=== PATIENT | female | born 1990 | race Caucasian/White ===

== ENCOUNTER 2017-02-10 11:11 | Inpatient (IN) ==
[2017-02-10] MEDS ORDERED: ZOFRAN IV PRN (13:54)
[2017-02-10 14:45] LABS: AGAP 15; ALBUMIN 4.1 g/dL (3.5-5.0); ALKALINE PHOSPHATASE 108 U/L (32-104); BUN 12 mg/dL (8-22); CALCIUM 8.3 mg/dL (8.8-10.2); CHLORIDE 105 mmol/L (98-107); COSMO 278; GOT 21 U/L (10-30); GPT 20 U/L (10-36); POTASSIUM 3.6 mmol/L (3.5-5.1); SODIUM 139 mmol/L (136-145); TCO2 19 mmol/L (25-35); TOTAL PROTEIN 7.5 g/dL (6.3-8.3)
[2017-02-10 14:48] LABS: BASO% 0.1 % (0.0-0.8); HEMATOCRIT 38.5 % (37.0-47.0); IMM GRAN# 0.04 X1000 (0.0-0.04); IMM GRAN% 0.2 % (0.0-0.5); LYMPH# 1.26 X1000 (1.2-3.4); LYMPH% 5.9 % (20.5-51.1); MANUAL DIFF NEEDED? YES; MCHC 33.8 g/dL (33-37); MCV 100.8 FL (81-99); MONO# 1.24 X1000 (0.11-0.59); MONO% 5.8 % (1.7-9.3); MPV 11.1 FL (7.4-10.4); PLT 187 X1000 (130-400); RBC 3.82 XMIL (4.2-5.4)
[2017-02-10 14:52] LABS: BANDS 6 % (0-1); LYMPHS 7 % (21-51); MONO 6 % (1-9)
[2017-02-10] MEDS: ALBUTEROL NEB INH SCH ×2 (15:05→20:37)
--- NOTE | 2017-02-10 15:15 | Diag Imaging Result Doc PS360 ---
EXAM: CHEST-PORTABLE INDICATION: UPPER RESP INFECTION COMPARISON: 06/15/2016 FINDINGS: The lungs are grossly clear. There is no discrete pleural fluid collection. The cardiomediastinal silhouette and central vasculature are grossly unremarkable. There are metallic rods along the length of the thoracic and lumbar spine. IMPRESSION: No evidence of acute pathology. Electronically signed by Kenneth Olsen 02/10/2017 3:12 PM
[2017-02-10] MEDS: D5 1/2 NS 1,000 ML IV SCH (15:52)
[2017-02-10] MEDS: LEVAQUIN 500 MG/D5W 500 MG/100 ML IVPB IV SCH (17:46)
[2017-02-10] MEDS: TRILEPTAL PO SCH (19:02)
[2017-02-10] MEDS: ROCEPHIN 1 GM/NS 1 GM/50 ML IVPB IV SCH (19:02)
[2017-02-10] MEDS: KLONOPIN PO SCH (21:26)
[2017-02-11] MEDS: ALBUTEROL NEB INH SCH ×7 (00:57→23:20)
[2017-02-11] MEDS: D5 1/2 NS 1,000 ML IV SCH ×2 (03:23→18:14)
[2017-02-11] MEDS: ROCEPHIN 1 GM/NS 1 GM/50 ML IVPB IV SCH ×2 (06:32→17:57)
[2017-02-11] MEDS: SYNTHROID PO SCH (06:39)
[2017-02-11] MEDS: TRILEPTAL PO SCH ×2 (06:40→18:41)
--- NOTE | 2017-02-11 06:59 | HISTORY AND PHYSICAL ---
CHIEF COMPLAINT: Fever. HISTORY OF PRESENT ILLNESS: The patient is a 26-year-old female with a history of cerebral palsy. She presented today with fever, cough, congestion. Mom notes that she was more somnolent. Mom also notes that she was not tolerating her as well. She has been having fever at home. PAST MEDICAL HISTORY: Cerebral palsy. He is nonverbal. History of seizure disorder. Chronic malnutrition. She is on TPN. SURGICAL HISTORY: She has had spinal surgery with a karin placed and PEG tube placed. SOCIAL HISTORY: Patient does not smoke or drink. There is no illicit drug use. She lives at home with her mother. Primary care is [facility] in [place]. ALLERGIES: Penicillin and latex. HOME MEDICATIONS: Synthroid 50, Trileptal, Klonopin. REVIEW OF SYSTEMS: Unobtainable from Ms. Plata. However, her mom notes that she has had fever for the past couple of days, increased cough, increased congestion. Decreased tolerance of her PEG tube feeds. She has been more somnolent. Denies any rashes. Denies any other GI or issues. PHYSICAL EXAMINATION: VITAL SIGNS: Reviewed. Kathi is awake and alert. NECK: Supple. CV: Regular rate. CHEST: Good air movement, Relatively clear. No wheezing. ABDOMEN: Soft, cachectic. EXTREMITIES: No edema. Positive flexion contractures in upper and lower extremities. SKIN: No rashes. NEURO: No focal changes. LABS: WBCs 21, hemoglobin 13 and hematocrit 38. CMP normal. ASSESSMENT: 1. Pneumonia. 2. Fever. 3. Leukocytosis. 4. Sepsis secondary to pneumonia 5. Cerebral palsy. 6. History of seizure disorder. 7. Chronic malnutrition on TPN. PLAN: We will admit patient to the hospital. IV fluids with gentle hydration. Continue TPN feeds. Place her on IV antibiotics. Tylenol as needed and continue to follow. We will continue her home medications for seizures. Further orders as . cc: Nabeel Azul MD
--- NOTE | 2017-02-11 07:19 | Diag Imaging Result Doc PS360 ---
EXAM: CHEST-PORTABLE HISTORY: R/O aspiration COMPARISON: 02/10/2017. FINDINGS: The lungs are well expanded. The heart is not enlarged. The vessels are not distended. No infiltrates. No pleural effusions identified. There are rods in the thoracic spine. IMPRESSION: Negative chest. Electronically signed by David Gifford 02/11/2017 7:17 AM
[2017-02-11] MEDS ORDERED: SYNTHROID PO SCH (07:30)
--- NOTE | 2017-02-11 08:36 | PROGRESS NOTE ---
DATE: 02/11/2017 SUBJECTIVE: Mom notes that she looks like she is feeling better. She denies any fevers or chills. PHYSICAL EXAMINATION: Temperature 97, pulse 122, respiratory 20, BP 122/95, saturation 96% on room air. General: The patient is awake, alert. She is currently in no respiratory distress. CV: Tachycardia. Chest: Positive rhonchi which has changed from yesterday's exam. Abdomen soft, cachectic. Extremities: Positive contraction flexures. Neurologic: No changes. Skin: No rashes. LABORATORY: Pending. ASSESSMENT: 1. Sepsis. 2. Leukocytosis. 3. Fever, resolved. 4. Pneumonia. 5. Chronic malnutrition. 6. Cerebral palsy. PLAN: We will continue antibiotics, recheck her labs, further orders as needed. cc: Nabeel Azul MD
[2017-02-11] MEDS ORDERED: TRILEPTAL PO SCH ×3 (09:00→21:00)
[2017-02-11] MEDS: TOPROL XL PO SCH (09:54)
[2017-02-11] MEDS: LEVAQUIN 500 MG/D5W 500 MG/100 ML IVPB IV SCH (16:37)
[2017-02-11] MEDS ORDERED: KLONOPIN PO SCH (21:00)
[2017-02-11] MEDS: KLONOPIN PO SCH (21:22)
[2017-02-12] MEDS: ALBUTEROL NEB INH SCH ×6 (04:05→23:08)
[2017-02-12 06:00] LABS: HEMATOCRIT 37.9 % (37.0-47.0); HEMOGLOBIN 12.5 g/dL (12.0-16.0); MCH 33.6 PG (27-31); MCV 101.9 FL (81-99); MPV 11.2 FL (7.4-10.4); RBC 3.72 XMIL (4.2-5.4)
[2017-02-12] MEDS: TRILEPTAL PO SCH ×2 (06:24→18:00)
[2017-02-12] MEDS: ROCEPHIN 1 GM/NS 1 GM/50 ML IVPB IV SCH ×2 (06:25→17:55)
[2017-02-12] MEDS: SYNTHROID PO SCH (06:25)
[2017-02-12 06:33] LABS: AGAP 13; ALBUMIN 3.7 g/dL (3.5-5.0); ALKALINE PHOSPHATASE 92 U/L (32-104); BUN 9 mg/dL (8-22); CALCIUM 8.6 mg/dL (8.8-10.2); CHLORIDE 104 mmol/L (98-107); COSMO 274; GOT 21 U/L (10-30); GPT 18 U/L (10-36); POTASSIUM 4.4 mmol/L (3.5-5.1); SODIUM 138 mmol/L (136-145); TCO2 20 mmol/L (25-35); TOTAL PROTEIN 7.3 g/dL (6.3-8.3)
[2017-02-12] MEDS: TOPROL XL PO SCH (09:21)
--- NOTE | 2017-02-12 09:46 | PROGRESS NOTE ---
DATE: 02/12/2017 SUBJECTIVE: The patient is doing much better. She did not tolerate her tube feeds all night last night. However, her mom notes that her breathing is easier and notes that her color looks back to normal and her activity is starting to improve. OBJECTIVE: Vital signs: Temperature 97, pulse 104, respiratory rate 16, blood pressure 112/77, and saturation 99% on room air. General: The patient is awake and alert. She is currently in no respiratory distress. She is starting to feel better. Neck: Supple. CV: Mild tachycardia. No murmurs. Chest: Positive upper airway noise but no crackles and no wheezing. Abdomen: Soft. Extremities: Moves all of her extremities. She is noted to have multiple flexion contractures but otherwise no changes. LABS: WBC is 5. CMP is normal. ASSESSMENT: 1. Sepsis, resolved. Secondary to pneumonia. 2. Leukocytosis, resolved. WBC count is 5.9. 3. Pneumonia, improved. 4. Cerebral palsy. 5. Chronic malnutrition, stable. PLAN: We will ask [facility] to assist in discharge planning. She does have a small sacral decubitus and certainly may benefit from an additional type of air mattress at home. Hopefully she can discharge home in the a.m.. cc: Nabeel Azul MD
[2017-02-12] MEDS: LEVAQUIN 500 MG/D5W 500 MG/100 ML IVPB IV SCH (16:18)
[2017-02-12] MEDS: KLONOPIN PO SCH (21:08)
[2017-02-13] MEDS: ALBUTEROL NEB INH SCH ×3 (03:01→11:05)
[2017-02-13] MEDS: ROCEPHIN 1 GM/NS 1 GM/50 ML IVPB IV SCH (05:56)
[2017-02-13] MEDS: TRILEPTAL PO SCH (06:00)
[2017-02-13] MEDS: SYNTHROID PO SCH (06:00)
[2017-02-13 07:58] VITALS: BP 119/73
[2017-02-13] MEDS: TOPROL XL PO SCH (09:40)
[2017-02-13] MEDS ORDERED: LOPRESSOR PO SCH (09:45)
--- NOTE | 2017-02-13 22:06 | DISCHARGE SUMMARY ---
ADMISSION DATE: 02/10/2017 DISCHARGE DATE: 02/13/2017 DISCHARGE DIAGNOSES: 1. Pneumonia resolved. 2. Leukocytosis resolved. 3. Sepsis secondary to pneumonia resolved. 4. Fever resolved. 5. Cerebral palsy. 6. History of seizure disorder. 7. Chronic malnutrition currently on total parental nutrition and tolerating much better. CONSULTATIONS: None. PROCEDURE: None. BRIEF HOSPITAL COURSE: Patient is a 26-year-old female admitted as noted on the HPI with increased fever, cough, congestion. She was no longer tolerating her tube feeds. She was having coughing and congestion afterwards. Mom noted that she was much more somnolent on admission. Currently on discharge she is awake, alert. She is back to her usual self. Mom was comfortable with her being discharged. DISPOSITION: The patient will be discharged home. Will continue Omnicef for 5 more days. Continue her Trileptal and Synthroid without any changes. We did start her on Toprol once a day 25 mg and will continue this at home for now. FOLLOWUP: She will follow up with [facility] in [place] in 1 week, sooner if symptoms worsen or return. TIME SPENT: 35 minutes was spent in discharge planning and instructions. cc: Nabeel Azul MD
== END 2017-02-13 11:40 | disposition home or self-care (01) ==
LOC: P.DIRADM 11:11 → P.MEDSURG 11:42
PROVIDERS: ADMIT Family Medicine; ATTEND Family Medicine

== ENCOUNTER 2018-11-27 03:31 | Inpatient (IN) ==
[2018-11-27] MEDS ORDERED: MOTRIN LIQUID PEG ONE (03:42)
[2018-11-27] MEDS ORDERED: TYLENOL LIQUID PEG ONE (03:42)
[2018-11-27] MEDS ORDERED: NS 1,000 ML IV ONE ×3 (03:42→05:44)
--- NOTE | 2018-11-27 03:55 | PROVIDER DOCUMENTATION ---
HPI-General Adult - General Chief Complaint: Fever Stated Complaint: SHAKING Time Seen by Provider: 11/27/18 03:40 Source: family Allergies/Adverse Reactions: Patient Allergies Allergy/AdvReac Type Severity Reaction Status Date / Time latex Allergy RASH Verified 12/29/17 16:22 Penicillins Allergy RASH Verified 12/29/17 16:22 Home Medications: Home Medication List Medication Instructions Recorded Confirmed Last Taken Type Clonazepam [Klonopin] 0.5 mg PO HS 04/27/14 02/10/17 02/09/17 History Oxcarbazepine [Trileptal Liquid] 600 mg PO DAILY 04/27/14 02/10/17 02/10/17 History Oxcarbazepine [Trileptal Liquid] 900 mg PO HS 07/13/14 02/10/17 02/09/17 History Levothyroxine [Synthroid] 50 microgm PO ACB 06/16/16 02/10/17 02/10/17 History Albuterol [Albuterol Neb] 2.5 mg INH RTQ4H #120 neb 02/13/17 Unknown Rx Clonazepam [Klonopin] 0.5 mg PO QHS tablet 02/13/17 Unknown Rx Levofloxacin [Levaquin] 500 mg PO DAILY #7 tablet 02/13/17 Unknown Rx Levothyroxine [Synthroid] 50 microgm PO DAILY@0700 tablet 02/13/17 Unknown Rx Metoprolol Succinate E.r. [Toprol 25 mg PO DAILY #30 tablet 02/13/17 Unknown Rx Xl] Metoprolol [Lopressor] 25 mg PO BID #60 tablet 02/13/17 Unknown Rx - History of Present Illness -Gen Adult Nature of Presenting Problems: 28 y/o F brought to the ED by EMS from home with tachycardia and fevers. Per pt' s mother who is her caregiver pt began to have a fever yesterday with some congestion and today had emesis and seemed uncomfortable. Nothing given for fever today. Pt has CP and is unable to provide any history. Review of Systems - Adult - REVIEW OF SYSTEMS - ADULT ROS:: unobtainable per condition (due to CP) Constitutional: reports: no symptoms reported Past History - Adult - PAST MEDICAL HISTORY-ADULT Review of Records: reports: Old Records Reviewed, Nursing Assessment Review, Medications Reviewed, Social history reviewed & non-contributory. Major Childhood Illnesses: reports: denies history Cardiovascular: reports: denies history Respiratory: reports: denies history Gastrointestinal: reports: denies history Obstetrical/Gynecological: reports: denies history Genitourinary: reports: denies history Musculoskeletal: reports: denies history Neurological: reports: Seizures/Epilepsy, other (cerebral palsy) Endocrine/Immune: reports: denies history Other Conditions: reports: denies history - PRIOR SURGERIES/PROCEDURES Surgical/Procedure History: reports: indwelling device (feeding tube), orthopedic (extremity) (karin to back and legs) - PRIOR HOSPITALIZATIONS Prior Hospitalizations: reports: for other non-related - IMMUNIZATION STATUS Childhood Immunizations: See Nurse Assessment Flu Vaccine: See Nurse Assessment - FAMILY HISTORY Family History: reviewed, not pertinent Physical Exam-General - PHYSICAL EXAM-ADULT Initial Vital Signs Reviewed: Yes - CONSTITUTIONAL General Appearance: alert, other (chronically ill appearing) - EYES Eyes: PERRL/EOMI - HEAD, EARS, NOSE, MOUTH & THROAT HENMT: normocephalic/atraumatic, normal ENT inspection, TMs normal, pharynx normal, other (dry mucous membranes,) - NECK Neck: non-tender, full range of motion, supple - RESPIRATORY Respiratory: chest non-tender, lungs clear, normal breath sounds - CARDIOVASCULAR Cardiovascular: normal peripheral pulses, no edema, no JVD, tachycardia - GASTROINTESTINAL (ABDOMEN) Abdominal Exam: non tender, soft, other (g-tube in place) - MUSCULOSKELETAL Back Exam: normal inspection, no vertebral tenderness Extremity: non-tender, other (contractures BL) - SKIN Integumentary: normal color, normal turgor, warm/dry - NEUROLOGIC Neurologic: grossly normal, no motor/sensory deficits, other (at baseline per mom) - PSYCHIATRIC Psych/Mental Status: other (at baseline per mom) Progress - PLAN OF CARE/RESULTS Progress/Plan/Lab Results: Vital Signs - 8 hr 11/27/18 03:31 Temperature 102.4 F H Pulse Rate 175 H Respiratory Rate 28 H Blood Pressure 129/90 O2 Sat by Pulse Oximetry 93 L Orders Category Date Time Status IV Insertion ORDERED Care 11/27/18 03:42 Active CHEST-1 VIEW [RAD] Stat Exams 11/27/18 03:42 Ordered BLOOD CULTURE [BLDCUL] Stat Lab 11/27/18 03:42 Uncollected CBC WITH DIFF [HEME] Stat Lab 11/27/18 03:42 Ordered COMPREHENSIVE METABOLIC PANEL [CHEM] Stat Lab 11/27/18 03:[address] Stat Lab 11/27/18 03:42 Uncollected LACTATE, PLASMA [CHEM] Stat Lab 11/27/18 03:42 Uncollected LIPASE [CHEM] Stat Lab 11/27/18 03:[address] W/POSS RFLX CULT [URINALYSIS] Stat Lab 11/27/18 03:42 Uncollected 0.9% Sodium Chloride Inj [Ns] 1,000 ml Med 11/27/18 03:42 Active IV 999 mls/hr Acetaminophen Liquid [Tylenol Liquid] Med 11/27/18 03:42 Discontinued 650 mg PEG NOW ONE Ibuprofen [Motrin Liquid] Med 11/27/18 03:42 Discontinued 100 mg PEG NOW ONE fever with tachycardia cough and emesis, markedly tachycardic on arrival concerning for sepsis, IVF started and will further evaluate for causes including but not limited to uti, pna, aspiration, influenza, intraabdominal causes. Result Diagrams: 11/27/18 04:11 11/27/18 04:11 - REASSESSMENT Reassessment #1 Status: improving (tachycardia improving but remains tachycardic, BP remains stable, elevated lactate with pna and uti with spesis. NS boluses given and treated with abx. Will admit for further evaluation and treatment.) - XRAY 1 XRAY Study: Chest Impression: Abnormal (Early Right upper lobe infiltrate) - CONSULTS/PCP/HOSPITALIST Notification #1 *Consult/PCP/Hospitalist*: Dr. Good, Hospitalist Time Discussed: 05:43 Consult Disposition: Admit Departure - Departure Date of Disposition Decision: 11/27/18 Time of Disposition Decision: 05:36 DIAGNOSIS: Sepsis Qualifiers: Sepsis type: sepsis due to unspecified organism Qualified Code(s): A41.9 - Sepsis, unspecified organism Pneumonia Qualifiers: Pneumonia type: due to unspecified organism Laterality: right Lung location: upper lobe of lung Qualified Code(s): J18.1 - Lobar pneumonia, unspecified organism UTI (urinary tract infection) Qualifiers: Urinary tract infection type: site unspecified Hematuria presence: without hematuria Qualified Code(s): N39.0 - Urinary tract infection, site not specified Disposition: ADMITTED INPATIENT 09 Certified Medical Emergency: Emergent Condition: Fair Referrals and Follow-Ups: Slime Bond CRNP [Primary Care Provider] - - Critical Care Note This patient required my direct & personal management of CC.: Yes Attestation - Physician/ CARLYLE Attestation Patient care was provided by Advanced Practice Provider:: No The physician spent face to face time with patient:: Yes Advanced Practice Provider documentation review:: Supervising physician onsite and consulted in the evaluation and care of this patient. The physician did have a face to face encounter with the patient.
[2018-11-27 04:29] LABS: BASO# 0.01 X1000 (0.0-0.2); BASO% 0.1 % (0.0-0.8); EOS# 0.04 X1000 (0.0-0.7); EOS% 0.2 % (0.0-10.0); HEMATOCRIT 40.2 % (37.0-47.0); HEMOGLOBIN 13.6 g/dL (12.0-16.0); IMM GRAN# 0.04 X1000 (0.0-0.04); IMM GRAN% 0.2 % (0.0-0.5); LYMPH% 4.3 % (20.5-51.1); MCH 33.7 PG (27-31); MCHC 33.8 g/dL (33-37); MCV 99.8 FL (81-99); MONO# 0.45 X1000 (0.11-0.59); MONO% 2.4 % (1.7-9.3); MPV 11.2 FL (7.4-10.4); NEUT# 17.34 X1000 (1.4-6.5); NEUT% 92.8 % (42.2-75.2); PLT 176 X1000 (130-400); RBC 4.03 XMIL (4.2-5.4); RDW 12.1 % (11.5-14.5); WBC 18.68 X1000 (4.8-10.8)
[2018-11-27 04:36] LABS: INFLUENZA A NEGATIVE (NEGATIVE); INFLUENZA B NEGATIVE (NEGATIVE)
[2018-11-27 04:36] LABS: AGAP 16; ALBUMIN 4.3 g/dL (3.5-5.0); ALKALINE PHOSPHATASE 129 U/L (32-104); BUN 9 mg/dL (8-22); CALCIUM 8.8 mg/dL (8.8-10.2); CHLORIDE 99 mmol/L (98-107); COSMO 274; CREATININE 0.3 mg/dL (0.5-0.9); ESTIMATED GFR > 60; GLUCOSE 93 mg/dL (70-104); GOT 22 U/L (10-30); GPT 23 U/L (10-36); LIPASE 27 U/L (13-60); POTASSIUM 3.8 mmol/L (3.5-5.1); SODIUM 138 mmol/L (136-145); TCO2 23 mmol/L (25-35); TOTAL PROTEIN 7.3 g/dL (6.3-8.3)
[2018-11-27 04:41] LABS: BANDS 2 % (0-1); LYMPHS 4 % (21-51); MONO 2 % (1-9); SEGS 92 % (42-75)
[2018-11-27 04:42] LABS: VACUOLES OCCASIONAL
[2018-11-27 05:18] LABS: BILIRUBIN URINE NEGATIVE (NEGATIVE); BLOOD URINE NEGATIVE (NEGATIVE); CLARITY CLEAR (CLEAR); COLOR YELLOW; GLUCOSE URINE NEGATIVE (NEGATIVE); KETONE URINE NEGATIVE (NEGATIVE); LEUKOCYTES URINE TRACE (NEGATIVE); NITRITE URINE NEGATIVE (NEGATIVE); PROTEIN URINE NEGATIVE (NEGATIVE); UROBILINOGEN URINE NORMAL
[2018-11-27 05:21] LABS: URINE BACTERIA 3+ /HFP; URINE EPITHELIAL CELLS <10 /HPF (<10); URINE SOURCE CATH; URINE WBC <10 /HPF (<10)
[2018-11-27] MEDS ORDERED: ROCEPHIN 1 GM in NS 50 ML IV ONE (05:27)
[2018-11-27] MEDS ORDERED: TYLENOL LIQUID PEG PRN (05:44)
--- NOTE | 2018-11-27 07:51 | Diag Imaging Result Doc PS360 ---
EXAM: CHEST-1 VIEW INDICATION: fever TECHNIQUE: One view COMPARISON: 02/11/2017 FINDINGS: There are spinal Weldon rods. Inspiration is suboptimal. This causing some central venous crowding. The lungs are grossly clear, otherwise. There is no discrete pleural fluid collection or pneumothorax. The cardiomediastinal silhouette and central vasculature are grossly unremarkable. IMPRESSION: Following low lung volumes. Otherwise, no definite acute pathology by plain radiograph. Electronically signed by Kenneth Olsen 11/27/2018 7:49 AM
--- NOTE | 2018-11-27 13:05 | HISTORY AND PHYSICAL ---
CHIEF COMPLAINT: Nausea, fever. HISTORY OF PRESENT ILLNESS: The patient is a 28-year-old female who lives at home. She is cared for by her mother. Mom notes that she has had no complications of late until yesterday when she started having fever, started having shaking chills, teeth chattering. She has been having some congestion for the past couple of days, but this is quite normal. Last evening, after the fever started, she started having emesis and seemed much more uncomfortable, and therefore she was brought to the hospital. SOCIAL HISTORY: Patient is on disability. Lives at home, cared for by her family. Does not smoke or use illicit substances. PAST MEDICAL HISTORY: Significant for cerebral palsy, history of seizures, recurrent history of aspiration pneumonia. She has an indwelling feeding tube. She has had to have rods placed in her back and leg. FAMILY HISTORY: Noncontributory. ALLERGIES: Penicillin causing a rash. Latex causing a rash. MEDICATIONS: Klonopin 0.5 at bedtime. Trileptal 500 daily and 900 at bedtime. Synthroid 50. Albuterol p.r.n. Klonopin 0.5 at bedtime. PHYSICAL EXAMINATION: VITAL SIGNS: Temperature 102.4 (T-max), pulse initially in the ER was 170s and currently low 100s, respiratory 28 and currently 20, blood pressure 129/90. HEENT: Normocephalic. NECK: Supple. CARDIOVASCULAR: Regular rate. CHEST: Clear but poor air movement. No current crackles. Positive upper airway noise. ABDOMEN: Soft. EXTREMITIES: No edema. NEUROLOGIC: No changes from her previous exams. ASSESSMENT: 1. Right upper lobe pneumonia. 2. Tachycardia. 3. Fever. 4. Sepsis. 5. Cerebral palsy. 6. Seizure disorder. PLAN: We will continue patient in the hospital, ICU for now, continue antibiotics, and we will follow. Continue her home medications as well as feeding tubes. Check blood culture, urine culture. cc: Nabeel Azul MD
[2018-11-27] MEDS ORDERED: TYLENOL PO PRN (18:57)
[2018-11-27] MEDS ORDERED: ZOFRAN IV PRN (18:57)
[2018-11-27] MEDS ORDERED: NS 1,000 ML IV SCH (19:00)
[2018-11-27] MEDS: ROCEPHIN 1 GM in NS 50 ML IV SCH (19:32)
[2018-11-27] MEDS: PATIENT'S OWN MED PEG SCH (20:44)
[2018-11-27] MEDS: KLONOPIN PO SCH (20:44)
[2018-11-28] MEDS: SYNTHROID PEG SCH (06:32)
[2018-11-28] MEDS: ALBUTEROL NEB INH PRN ×4 (08:38→19:26)
[2018-11-28] MEDS: PATIENT'S OWN MED PEG SCH ×2 (09:11→22:03)
[2018-11-28] MEDS: LIORESAL PEG SCH ×4 (09:11→22:02)
[2018-11-28] MEDS ORDERED: FLU VACCINE IM ONE (11:26)
[2018-11-28] MEDS: ROCEPHIN 1 GM in NS 50 ML IV SCH (19:48)
[2018-11-28] MEDS ORDERED: TRILEPTAL PO SCH (21:00)
[2018-11-28] MEDS: KLONOPIN PO SCH (22:02)
--- NOTE | 2018-11-28 22:47 | PROGRESS NOTE ---
DATE: 11/28/2018 SUBJECTIVE: Patient's mom notes that she seems to be doing better. She is having less outburst. Her color is back to normal. She is starting to tolerate her tube feeds better. OBJECTIVE: Vital signs: She is afebrile. Vital signs reviewed and stable. Temperature 98.4, pulse 101, respiratory rate 16, BP 116/97. General: The patient is awake, alert and oriented in no distress. Cardiovascular: Regular rate. Chest: Positive rhonchi. No crackles. Abdomen: Soft. Extremities: Has focal neurologic chronic changes secondary to cerebral palsy. ASSESSMENT: 1. Sepsis. 2. Pneumonia. 3. Cerebral palsy. PLAN: We will continue patient in the hospital, get physical therapy involved, continue antibiotics. Further orders as needed. cc: Nabeel Azul MD
[2018-11-29] MEDS: ALBUTEROL NEB INH PRN ×4 (07:50→19:21)
[2018-11-29] MEDS ORDERED: TRILEPTAL PO SCH (09:00)
[2018-11-29] MEDS: SYNTHROID PEG SCH (09:40)
[2018-11-29] MEDS: LIORESAL PEG SCH ×3 (09:40→22:03)
[2018-11-29] MEDS: OMNICEF PO SCH ×2 (09:40→22:03)
[2018-11-29] MEDS: PATIENT'S OWN MED PO SCH (09:44)
[2018-11-29] MEDS: PATIENT'S OWN MED PEG SCH ×2 (10:31→19:30)
[2018-11-29 11:19] LABS: BASO# 0.02 X1000 (0.0-0.2); BASO% 0.3 % (0.0-0.8); EOS# 0.05 X1000 (0.0-0.7); EOS% 0.6 % (0.0-10.0); HEMATOCRIT 37.9 % (37.0-47.0); HEMOGLOBIN 12.9 g/dL (12.0-16.0); IMM GRAN# 0.01 X1000 (0.0-0.04); IMM GRAN% 0.1 % (0.0-0.5); LYMPH# 2.34 X1000 (1.2-3.4); LYMPH% 29.3 % (20.5-51.1); MCH 33.3 PG (27-31); MCV 97.9 FL (81-99); MONO# 1.31 X1000 (0.11-0.59); MONO% 16.4 % (1.7-9.3); MPV 10.3 FL (7.4-10.4); NEUT# 4.25 X1000 (1.4-6.5); NEUT% 53.3 % (42.2-75.2); PLT 174 X1000 (130-400); RBC 3.87 XMIL (4.2-5.4); RDW 12.1 % (11.5-14.5); WBC 7.98 X1000 (4.8-10.8)
[2018-11-29 11:38] LABS: AGAP 10; ALBUMIN 3.9 g/dL (3.5-5.0); ALKALINE PHOSPHATASE 112 U/L (32-104); BUN 10 mg/dL (8-22); CALCIUM 8.5 mg/dL (8.8-10.2); CHLORIDE 108 mmol/L (98-107); COSMO 286; CREATININE 0.2 mg/dL (0.5-0.9); ESTIMATED GFR > 60; GLUCOSE 97 mg/dL (70-104); GOT 14 U/L (10-30); GPT 17 U/L (10-36); MAGNESIUM 2.1 mg/dL (1.5-2.7); POTASSIUM 4.4 mmol/L (3.5-5.1); SODIUM 144 mmol/L (136-145); TCO2 26 mmol/L (25-35); TOTAL BILIRUBIN < 0.15 mg/dL (0.20-1.00); TOTAL PROTEIN 7.1 g/dL (6.3-8.3)
[2018-11-29] MEDS ORDERED: FIBER PEG SCH (12:00)
[2018-11-29] MEDS ORDERED: LACTOSE REDUCED FOOD PEG SCH (12:00)
[2018-11-29] MEDS: KLONOPIN PO SCH (22:03)
--- NOTE | 2018-11-29 23:43 | PROGRESS NOTE ---
DATE: 11/29/2018 SUBJECTIVE: Patient's mom notes that she is feeling better, she is starting to eat better. OBJECTIVE: VITAL SIGNS: Temperature 94 degrees, pulse 105, respiratory 20, BP 116/97. General: Patient is currently in no distress. Her color appears better. She appears to be feeling back to her baseline. HEENT: Normocephalic, atraumatic. Neck: Supple. CARDIOVASCULAR: Regular rate. Chest: Clear. Abdomen: Soft, nondistended. Neurologic: No focal changes. ASSESSMENT: 1. Right upper lobe pneumonia 2. Tachycardia. 3. Sepsis, resolved. 4. Cerebral palsy. 5. History of seizure disorder. PLAN: We will continue patient in the hospital today. We will change her antibiotics to oral. If she has no further fever, she did have a temperature of 100.7 degrees earlier, then we will discharge her home tomorrow. cc: Nabeel Azul MD
[2018-11-30] MEDS: SYNTHROID PEG SCH (06:43)
[2018-11-30] MEDS: ALBUTEROL NEB INH PRN (08:14)
[2018-11-30] MEDS: PATIENT'S OWN MED PEG SCH ×2 (08:39→19:56)
[2018-11-30] MEDS: LIORESAL PEG SCH ×3 (08:40→21:58)
[2018-11-30] MEDS: OMNICEF PO SCH ×2 (08:40→21:58)
[2018-11-30] MEDS: LOPRESSOR PO SCH ×2 (08:40→21:58)
[2018-11-30] MEDS: PATIENT'S OWN MED PO SCH (10:45)
[2018-11-30] MEDS ORDERED: BLISTEX MEDICATED BERRY LIP BALM TOP ONE (16:05)
[2018-11-30] MEDS ORDERED: BLISTEX MEDICATED BERRY LIP BALM TOP PRN (16:08)
[2018-11-30] MEDS: KLONOPIN PO SCH (21:58)
--- NOTE | 2018-11-30 22:13 | PROGRESS NOTE ---
DATE: 11/30/2018 SUBJECTIVE: Patient's mom notes that she did not quite seem to feel as good today as she did yesterday. She is tolerating her tube feeds well, however. PHYSICAL EXAM: Vital signs: Temperature 98 degrees, pulse 130s to 140s, respiratory 20, BP 116/97. General: Patient is in no current respiratory distress but she is somewhat ill-appearing today compared to yesterday. Her color does not seen quite the same. She seems to be more uncomfortable. HEENT: Normocephalic. Neck: Supple. CARDIOVASCULAR: Irregular rate, irregular rhythm. Chest: Clear, nonlabored. Abdomen: Soft, nondistended. ASSESSMENT: 1. Right upper lobe pneumonia, currently on Omnicef. She is afebrile. 2. Tachycardia. She has baseline tachycardia, but this is more elevated than usual. 3. Fever, resolved. 4. Sepsis, resolved. 5. Cerebral palsy. 6. Seizure disorder. PLAN: We will continue patient in the hospital. Continue Omnicef. We will add low-dose metoprolol for her tachycardia. If symptoms improve we can discharge home tomorrow. cc: Nabeel Azul MD
[2018-12-01] MEDS: SYNTHROID PEG SCH (06:46)
[2018-12-01 07:40] VITALS: BP 103/79
[2018-12-01] MEDS: ALBUTEROL NEB INH PRN (08:11)
[2018-12-01] MEDS: LIORESAL PEG SCH (09:13)
[2018-12-01] MEDS: OMNICEF PO SCH (09:14)
[2018-12-01] MEDS: LOPRESSOR PO SCH (09:14)
== END 2018-12-01 09:25 | disposition home or self-care (01) | DRG 871 ==
LOC: P.ED 03:31 → P.MEDSURG 07:18 → SUATTDRO 07:18 → P.MEDSURG 11-28 10:20
PROVIDERS: ADMIT Family Medicine; ATTEND Family Medicine
CPT/HCPCS: 71010; 71045; 80053; 81001; 83605; 83690; 83735; 85025; 87040; 87088; 87275; 87276; 87804; 94640; 94761; 96361; 96365; 99285; A9270; J0696; J7030